=== PATIENT | female | born 1965 | race Caucasian/White ===

== ENCOUNTER 2024-11-16 17:45 | Emergency (ER) | payer OTHER, SELFPAY ==
[2024-11-16] VITALS (8 sets, daily range): BP systolic 151–195; BP diastolic 73–128; PULSE 81–88
[2024-11-16 18:20] LABS: Hematocrit 43.9 % (37.0-47.0); Hemoglobin 15.1 g/dL (12.0-16.0); Mean Corp Hgb Conc. 34.4 g/dL (33.0-37.0); Mean Corpuscular Volume 88.9 fL (81.0-99.0); Nucleated Red Blood Cells % 0 %; Platelet Count 192 10^3/uL (130-400); Red Cell Dist. Width 13.1 % (11.5-14.5)
[2024-11-16 18:27] LABS: Blood Urea Nitrogen 22 mg/dl (7-17); Calcium 9.7 mg/dl (8.4-10.2); Carbon Dioxide 29 mmol/L (22-30); Chloride 105 mmol/L (98-107); Glucose 153 mg/dl (70-99); Sodium 140 mmol/L (135-145); eGFR > 60.00
--- NOTE | 2024-11-16 20:31 | ED.GENMED ---
History of Present Illness
General
Chief Complaint: Dizziness
Source: patient
Exam Limitations: none
Time Seen by Provider: 11/16/24 19:24
Nursing documentation reviewed up to this point in time: agreed with
History of Present Illness
History of Present Illness:
Patient with history of asthma, presents to ED secondary to ongoing shortness of breath since May when she tested positive for COVID-19. However, recently, patient has also started to experience dizziness as well as shortness of breath with
exertion. Patient has been evaluated by her primary care physician and 1 month ago was started on blood pressure medication with water pill component to it, which improved her symptoms for 3 period time. Since then, her symptoms have returned, but
now associated with dizziness. Denies fever or chills. Denies coughing. Denies vomiting or diarrhea. Denies recent weight changes. Patient states that she drinks water during the day. Denies recent change in diet. Denies leg pain or swelling.
Denies back pain. Denies smoking. Denies family history of heart disease or blood clots. There has been discussion with her primary care physician about seeing health safety coordinator. Patient is currently using inhaler intermittently, without
significant improvement in symptoms.
Past History
Past History
ED Past Medical History: HTN
ED Past Surgical History: and Gynecological
Social History
Tobacco: Non-smoker
Alcohol: Occasional
Drug: None
Living: with family
Review of Systems
Review of Systems
Allergies reviewed?: Yes
All Other Systems: ROS reviewed and negative except as documented in HPI and ROS
Constitutional: Reports no symptoms
Respiratory: Reports trouble breathing; Denies cough
Cardiac: Reports no symptoms; Denies chest pain
ABD/GI: Reports no symptoms
: Reports no symptoms
Musculoskeletal: Reports no symptoms; Denies edema
Skin: Reports no symptoms
Neurological: Reports dizzy
Phy Exam
Physical Exam
Physical Exam:
Physical Exam
General: no apparent distress, not acutely ill. afebrile
Head: nc/at. eomi
Neck: supple. normal range of motion.
Heart: s1/s2 regular rate and rhythm
Lungs: no acute respiratory distress. clear bilaterally
Abdomen: normal bowel sounds. not tender.
Neuro: alert and oriented x 3. no focal neurological deficits
Skin: no rash
Psychiatric: well kept. interactive and cooperative
Extremities: LE b/l edema, nonpitting. no calf tenderness.
Course
Orders/Labs/Results
Orders:
Orders
11/16/24 17:48
EKG [Electrocardiogram (*1)] Urgent
Reason for Study: Vertigo / Dizzy
EKG- Treatment ONCE
11/16/24 18:05
Basic Metabolic Panel Urgent
CBC/With Diff [Complete Blood Count/With Diff] Urgent
Pro-BNP [NT-proBNP] Urgent
11/16/24 20:02
Orthostatic VS- Treatment ONCE
CR Chest - 2 Views Urgent
Comment:
Reason For Exam: sob
11/16/24 20:17
D-Dimer Urgent
11/16/24 21:23
CT Chest PE Study Urgent
Comment:
Reason For Exam: sob w elevated d-dimer
11/16/24 23:49
Troponin I Urgent
Abnormal Lab Results
11/16/24 11/16/24
18:05 20:17
MPV 11.8 H fL
(7.4-10.4)
D-Dimer 1.07 H ug/mlFEU
(0.00-0.50)
BUN 22 H mg/dl
(7-17)
Glucose 153 H mg/dl
(70-99)
11/16/24 18:05
11/16/24 18:05
Vital Signs
Initial and Last Documented VS:
Initial Vital Signs
Temp Pulse Resp BP Pulse Ox
97.6 F 90 15 195/128 99
11/16/24 17:49 11/16/24 17:49 11/16/24 17:49 11/16/24 17:49 11/16/24 17:49
Last Documented Vital Signs
Temp Pulse Resp BP Pulse Ox
97.6 F 80 21 164/86 99
11/16/24 17:49 11/17/24 00:31 11/17/24 00:31 11/17/24 00:31 11/17/24 00:31
MDM/Problems Addressed
MDM/Problems Addressed:
D-dimer elevated. CT angiogram PE study ordered, which did not reveal any acute pathology. Otherwise, patient is afebrile, hemodynamically stable, and appears comfortable time of discharge. Advised PCP follow-up as an outpatient, including
potential pulmonology consultation as an outpatient, in light of patient's ongoing dyspnea over the past number of months. Advised to return to ED with worsening symptoms.
*Pulse Oximetry
SaO2: 99
Oxygen Mode of Delivery: Room air
Patient hypoxic: no
*EKG
Interpreted by ED Provider?: Yes
EKG Intrepretation Date: 11/16/24
Heart Rate: 79
Rate: normal
Rhythm: sinus
Angela: normal axis
*Critical Care Note
Total Time (30-74mins, 75-104mins- exclusive of procedures): Not Applicable
ED Attending Note
-
Portions of this chart may have been created with voice recognition software.� Occasional wrong word or��sound alike� substitutions may have occurred due to the inherent limitations of voice recognition software.
Discharge Plan
Departure
Patient Disposition: Home (Routine Discharge)
Date of Disposition: 11/17/24
Time of Disposition: 00:27
Patient with high blood pressure during this ER visit?: Yes
Condition: Good
Discharge Problem:
Dizziness, Dyspnea
Instructions: Shortness of breath in adults - ED discharge instructions, Dizziness
Prescriptions:
No Action
Quinapril/Hydrochlorothiazide [Accuretic 20 Mg-12.5 Mg] 1 TABLET Tablet
1 tab PO DAILY
oxycodone-acetaminophen 5 MG/325 MG tablet
1 tab PO Q4HPRN PRN (Reason: pain) Qty: 20 0RF
albuterol sulfate 90 mcg/actuation HFA aerosol inhaler
2 puff inhalation QID PRN (Reason: shortness of breath or wheezing) Qty: 6.7 0RF
Referrals:
UNKNOWN - PT DOES,NOT KNOW [Unknown Provider]
Activity Restrictions/Additional Instructions:
As discussed, please follow-up with your primary care physician for reevaluation, including potential pulmonary consultation as an outpatient. Please consider return to ED with worsening symptoms.
Interventions
Interventions:
*Risk Screen - Suicide Last Done: 11/16/24 17:49
*General Assessment Last Done: 11/16/24 17:49
*Neglect/Abuse Screening Last Done: 11/16/24 17:49
*Nursing Disposition Last Done: 11/17/24 00:34
ED- Neurological Assessment Last Done: 11/16/24 19:00
ED- Cardiac Assessment Last Done: 11/16/24 19:00
Discharge Date and Time
Discharge Date/Time: 11/17/24 00:34
Print Language: CZECH
[2024-11-16 20:44] LABS: D-Dimer 1.07 ug/mlFEU (0.00-0.50)
[2024-11-17 00:18] LABS: Troponin I < 0.012 ng/ml
[2024-11-17 00:31] VITALS: BP 164/86
== END 2024-11-17 00:34 | disposition home or self-care (01) ==
LOC: EMR 17:45
PROVIDERS: Emergency Medicine; EMERGENCY PHYSICIAN Emergency Medicine; FAMILY PHYSICIAN Family Medicine
DX: R42 Dizziness and giddiness (principal); R06.02 Shortness of breath; I10 Essential (primary) hypertension; J45.909 Unspecified asthma, uncomplicated; Z86.16 Personal history of COVID-19
CPT/HCPCS: 99284; 71046; 71275; 80048; 83880; 84484; 85025; 85379; 93005; Q9967